=== PATIENT | male | born 1985 | race Two or more races ===

== ENCOUNTER → 2021-03-15 | Outpatient (CLI) | payer BC ==
--- NOTE | 2021-03-15 14:29 | RAD ---
XR ELBOW COMPLETE_RIGHT 3+ VIEWS, XR FOREARM_RIGHT 2 VIEWS 03/15/2021 2:12 PM INDICATION: Fall off horse COMPARISON: None available. TECHNIQUE: 3 views of the right elbow and 2 views of the right forearm are provided. FINDINGS/ IMPRESSION: Right elbow and forearm: There is a right elbow joint effusion. This may reflect an occult fracture. A definite fracture is not visualized involving the elbow. No radiopaque foreign density. Repeat eval uation in 7-10 days could be of benefit. Electronically signed by: Jaja Payne MD (03/15/2021 2:27 PM) [id number]
== END ==
LOC: RAD 13:58
PROVIDERS: ATTEND Nurse Practitioner Family
DX: M25.421 Effusion, right elbow (principal); V80.010A Animal-rider injured by fall from or being thrown from horse in noncollision accident, initial encounter
CPT/HCPCS: 73080; 73090